=== PATIENT | female | born 1980 | race Caucasian/White ===

== ENCOUNTER 2017-04-11 10:02 | Day surgery (SDC) | payer BC, MEDICAID, SELFPAY ==
--- NOTE | 2017-04-11 | FALS_PTH ---
PATIENT: BLAYNE BARTH LOC: [facility] [place] U#:[id number] AGE/SX: 36/F ROOM: RE04/11/[address]: Dr. Marixa Price, MDDOB: 1980 BED: DIS: 04/11/2017 SPEC #: [id number] RECD: 04/11/17 14:40 STATUS: JUAN KEENAN #: [id number] LATASHA: 04/11/17 00:[address]: Marixa Price DEPT: SURGICAL PATHOLOGY RECD BY: Agapito Reyes ENTERED: 04/11/17 14:40 SP TYPE: FALL TUBES OTHR DR: Dr. Denise Oviedo MD Tissues: Fallopian tube Procedures: Surgery Specimen Level II HEADER OPERATION: Laparoscopic salpingectomy PRE-OP DIAGNOSIS: Sterilization request TISSUE SUBMITTED: Bilateral fallopian tubes MICROSCOPIC DIAGNOSIS Right and left fallopian tubes, bilateral partial salpingectomies: Two complete segments of fallopian tubes with no pathologic change. AM:madhuri 04/12/17 MICROSCOPIC DESCRIPTION Slides are reviewed. GROSS DESCRIPTION Received is one container labeled with the patient's name and designated bilateral fallopian tubes. The specimen consists of bilateral fallopian tubes including fimbrial ends in four pieces. One of the pieces consist of a proximal portion of one fallopian tube and measures 4.5 cm in length and 0.5 cm in diameter. A separate piece consisting only of fimbrial end is noted and measures 1 x 1 x 0.5 cm. The third piece consists of distal portion of one fallopian tube including fimbrial end and measures 3.5 cm in length and 0.5 cm in diameter. A fourth piece is also noted most likely consisting of proximal portion of second fallopian tube measuring 2 cm in length and 0.4 cm in diameter. Computer Technologist sections are submitted in two cassettes as follows: 1 ? first and second piece most likely belongs to one fallopian tube, 2 ? second fallopian tube, third and fourth piece most likely belongs to one fallopian tube. / RAH:madhuri 04/11/17 TC:4 CPT: 42546 x2
[2017-04-11 10:22] VITALS: BP 106/88; PULSE 83; RESP 16; TEMP 36.6; O2SAT 99; BMI 30.3
[2017-04-11 10:24] LABS: Internal QC Validated? YES +Cl - CLEAR BKGD; Pregnancy, Urine Negative Negative
[2017-04-11 10:30] LABS: Hematocrit 42.1 % (37-47); Hemoglobin 14.5 g/dl (12.0-15.0); Mean Corp Hgb Conc 34.4 g/gl (32-36); Mean Corpuscular Hgb 32.1 pg (27.0-32.0); Mean Corpuscular Volume 93.1 fL (81-99); Mean Platelet Vol. 9.4 fl (6.2-12.0); Platelet Count 271 K/mm3 (150-450); RBC Distribution Width CV 12.8 % (11.6-14.6); RBC Distribution Width SD 42.6 fl (35.1-43.9); Red Blood Count 4.52 M/mm3 (4.2-5.4); White Blood Count 5.7 K/mm3 (4.4-11.0)
[2017-04-11 10:32] LABS: Scan Indicated on CBC? Y/N NO
--- NOTE | 2017-04-11 12:18 | PCM.DC ---
You will use the following diet at home:: No restrictions Discharge Activity: Return to Normal Activity, May not drive while taking narcotic pain medications., May Shower May shower in (days): 1 May resume sexual activity in: 2 weeks Lifting Restrictions: 20 Call your doctor if your incision/area has: Continuous Slow Oozing, Sudden Increased Bleeding, Increased Pain/ Swelling, Increased Redness, Foul Smelling Discharge, Swelling at the incision site Call your doctor if you observe: Fever of 101 or Higher Cleanse incision/area with: Soap & Water, - - you have skin glue over your incisions. Do NOT pick it off. You may let soap and water run over them and dab dry. Allergies/Adverse Reactions: Allergies No Known Allergies Allergy (Verified 04/06/17 11:11) Medications to take at Discharge Desogestrel-Ethinyl Estradiol [Velivet 28 Day Tablet] 1 tab PO DAILY 05/16/16 Primary Care Physician: Denise Oviedo MD [Primary Care Provider] - Please Follow Up With: Marixa Price MD When: as scheduled in 2 weeks
--- NOTE | 2017-04-11 12:20 | PCM.OP.BLANK ---
Operative Report Date of Procedure: 04/11/17 Surgeon: Dr. Marixa Price Business Project Analyst: edy White [id number] Preoperative diagnosis: Sterilization request Procedure performed: Laparoscopic bilateral salpingectomy Postoperative diagnosis: Sterilization request complications: None Estimated blood loss: 5 cc Drains: none Specimens collected: Bilateral tubes Findings: Normal tubes and ovaries bilaterally uterus sounded to approximately 8 cm. Operative note: After informed consent was obtained patient was taken to the operating room she was placed in supine position she was given anesthesia. She was then placed in the [facility] stirrups and she was prepped and draped in normal sterile fashion. Bladder was drained prior to the start of procedure approximately 150cc of clear yellow urine was expelled. At this time attention was turned to the vaginal portion where weighted speculum placed at posterior fornix vagina single-tooth tenaculum was used to gently grasp the internal the cervix. uterus was gently sounded to approximately 8cm. Uterine manipulator was placed without difficulty. Legs then placed in parallel with the abdomen the tenaculum and the weighted speculum were removed. 2 towel clamps were placed superior to umbilicus. After Marcaine was injected superior to umbilicus a small incision was made and a 5 mm trocar was placed under direct visualization. CO2 gas was used to insufflate the intra-abdominal cavity. Upon inspection no gross abnormalities uterus tubes and ovaries appeared to be normal. At this time then the LLQ port was placed again Marcaine was injected small incision was made a knife and the 5 mm trocar was placed. Alligator clamp was then placed suprapubically. At this time then tubes were traced back to the fimbriated ends. LigaSure was used to coagulate and ligate along mesosalpinx bilaterally until tubes removed completely. Good hemostasis was appreciated. At this time procedure was deemed complete successful. The gas was desufflated on from the intra-abdominal cavity. The trocars were removed. Skin was closed using 4-0 Monocryl in a subcutaneous fashion. Dermabond glue was placed. Instrument lap and needle counts were correct ?2. The uterine manipulator was removed. Vaginal sweep was performed it was negative. There were no complications anticipated normal postoperative course for this patient.
[2017-04-11 12:29] VITALS: BP 106/88; BP 134/97; PULSE 107; RESP 18; TEMP 36.3; O2SAT 98
[2017-04-11 12:30] VITALS: BP 106/88; BP 129/76; PULSE 95; RESP 16; O2SAT 96
[2017-04-11 12:45] VITALS: BP 106/88; BP 120/65; PULSE 74; RESP 16; O2SAT 96
[2017-04-11 13:00] VITALS: BP 106/88; BP 131/78; PULSE 76; RESP 16; TEMP 36.5; O2SAT 99
[2017-04-11 13:25] VITALS: BP 106/88
== END 2017-04-11 13:26 | disposition home or self-care (01) ==
LOC: SDC 10:07 → AC 12:33
PROVIDERS: Anesthesiology; Family Provider Family Medicine; PCP Family Medicine; Visit Provider Obstetrics & Gynecology
PROC: (CPT 58661; principal; 2017-04-11 11:30)
DX: Z30.2 Encounter for sterilization (principal); F17.210 Nicotine dependence, cigarettes, uncomplicated; Z79.891 Long term (current) use of opiate analgesic
CPT/HCPCS: 58661; 36415; 81025; 85027; 88302; J3010; J7120; J2405

== ENCOUNTER → 2017-06-14 16:27 | Outpatient (CLI) | payer BC, MEDICAID, SELFPAY ==
[2017-06-14 18:17] LABS: Hemoglobin A1c 4.9 % (4.2-6.3)
[2017-06-14 18:22] LABS: Thyroid Stim Hormone (TSH) 1.93 uIU/mL (0.358-3.74)
== END ==
PROVIDERS: Family Provider Family Medicine; PCP Family Medicine; Visit Provider Family Medicine
DX: R23.9 Unspecified skin changes (principal)
CPT/HCPCS: 36415; 83036; 84443

== ENCOUNTER → 2019-02-13 16:33 | Outpatient (CLI) | payer BC, MEDICAID, SELFPAY ==
--- NOTE | 2019-02-13 16:40 | RAD_ITS ---
STUDY: X-RAY - ABDOMEN/PELVIS REASON FOR EXAM: Female, 38 years old. Abd pain, vomiting x several months TECHNIQUE: AP supine and upright views of the abdomen and pelvis. COMPARISON: None. FINDINGS: Normal visualized lung bases. There is an unremarkable bowel gas pattern. There is no demonstrated free abdominal air. 0.35 cm calcification over the right mid renal level. There are calcified phleboliths in the pelvis. Presumed vaginal tampon present. Normal visualized osseous structures. RAD/Abd Inc Decub and/or Erect IMPRESSION: There is no obstruction or perforation. Possible nephrolithiasis. Electronically Signed: Mary Kay Garcia MD at 4:38 EST , Service support ,
== END ==
PROVIDERS: Family Provider Family Medicine; PCP Family Medicine; Referring Provider Family Medicine; Visit Provider Family Medicine
DX: R10.9 Unspecified abdominal pain (principal)
CPT/HCPCS: 74019

== ENCOUNTER → 2020-04-28 11:18 | Outpatient (CLI) | payer BC, MEDICAID, SELFPAY | PROVIDERS: PCP Family Medicine; Visit Provider Nurse Practitioner Family | DX: Z20.822 Contact with and (suspected) exposure to COVID-19 (principal) | CPT/HCPCS: 87633; 87635; U0002 ==

== ENCOUNTER → 2022-09-13 | Outpatient (CLI) | payer MEDICAID, SELFPAY ==
[2022-09-14 14:10] LABS: Thyroglobulin Antibody < 1.0 IU/mL (0.0-0.9); Thyroid Peroxidase AB 9 IU/mL (0-34)
== END | disposition home or self-care (01) ==
PROVIDERS: PCP Family Medicine; Referring Provider Family Medicine; Visit Provider Family Medicine
DX: E05.90 Thyrotoxicosis, unspecified without thyrotoxic crisis or storm (principal)
CPT/HCPCS: 36415; 86376; 86800

== ENCOUNTER → 2022-09-15 | Outpatient (CLI) | payer MEDICAID, SELFPAY ==
--- NOTE | 2022-09-15 12:39 | US_ITS ---
INDICATION: hyperthyroidism EXAMINATION: Ultrasound US Thyroid (eg thyroid, parathyroid, parotid) TECHNIQUE: Augustine scale and color doppler imaging was performed of the thyroid gland. COMPARISON: None. FINDINGS: RIGHT THYROID LOBE: 1.5 x 5.2 x 1.7 cm with a volume of 7.3 mL. Heterogeneous echotexture. Normal vascularity. No thyroid nodules. LEFT THYROID LOBE: 2.1 x 4.3 x 1.7 cm with a volume of 7.8 mL. Heterogeneous echotexture. Normal vascularity. No thyroid nodules. ISTHMUS: 6 mm in AP diameter. Heterogeneous echotexture. Normal vascularity. No thyroid nodules. US/Thyroid IMPRESSION: Mild thyromegaly. No thyroid nodule. Electronically Signed: Adams Saleh DO at 1:57 EDT ,
== END | disposition home or self-care (01) ==
LOC: US 12:38
PROVIDERS: PCP Family Medicine; Referring Provider Family Medicine; Visit Provider Family Medicine
DX: E05.90 Thyrotoxicosis, unspecified without thyrotoxic crisis or storm (principal); E03.9 Hypothyroidism, unspecified
CPT/HCPCS: 76536

== ENCOUNTER → 2022-12-09 | Outpatient (CLI) | payer MEDICAID, SELFPAY ==
[2022-12-09 15:56] LABS: Free T3 6.5 pg/mL (2.18-3.98); T4 Free Direct 1.92 ng/dL (0.76-1.46); Thyroid Stim Hormone (TSH) < 0.01 uIU/mL (0.358-3.74)
== END | disposition home or self-care (01) ==
LOC: MTLAB 13:39
PROVIDERS: PCP Family Medicine; Referring Provider Internal Medicine Endocrinology, Diabetes & Metabolism; Visit Provider Internal Medicine Endocrinology, Diabetes & Metabolism
DX: R94.6 Abnormal results of thyroid function studies (principal)
CPT/HCPCS: 36415; 84439; 84443; 84481

== ENCOUNTER → 2023-01-06 | Outpatient (CLI) | payer MEDICAID, SELFPAY ==
[2023-01-06 16:06] LABS: Free T3 4.2 pg/mL (2.18-3.98); T4 Free Direct 1.28 ng/dL (0.76-1.46); Thyroid Stim Hormone (TSH) < 0.01 uIU/mL (0.358-3.74)
== END | disposition home or self-care (01) ==
LOC: MTLAB 12:51
PROVIDERS: PCP Family Medicine; Referring Provider Internal Medicine Endocrinology, Diabetes & Metabolism; Visit Provider Internal Medicine Endocrinology, Diabetes & Metabolism
DX: E05.90 Thyrotoxicosis, unspecified without thyrotoxic crisis or storm (principal)
CPT/HCPCS: 36415; 84439; 84443; 84481